=== PATIENT | female | born 1975 | race Asian ===

== ENCOUNTER 2021-04-05 16:55 | Emergency (ER) | payer OTHER ==
[~2021-04-05] VITALS: Ht 157.5 cm; Wt 54.4 kg
--- NOTE | 2021-04-05 17:07 | NUR ---
TO ER BED 4, C/O CHEST PAIN SINCE THIS AFTERNOON, ATTACHED TO MONITOR, AWAITING MD HAMM
--- NOTE | 2021-04-05 17:08 | NUR ---
SALINE LOCK ESTABLISHED AND BLOOD DRAWN
--- NOTE | 2021-04-05 17:42 | NUR ---
JANIE SO AT BEDSIDE
[2021-04-05 17:53] LABS: BASOPHILS # (AUTO) 0.1 K/uL (0.0-0.2); EOSINOPHILS % (AUTO) 2.8 % (0.0-6.0); HEMATOCRIT 40 % (33-45); LYMPHOCYTES # (AUTO) 2.1 K/uL (0.8-4.8); MEAN CORPUSCULAR HGB CONC 32 g/dl (31.0-36.0); MEAN CORPUSCULAR VOLUME 92 fL (82-100); MONOCYTES # (AUTO) 0.3 K/uL (0.1-1.30); MONOCYTES % (AUTO) 6.4 % (2.0-12.0); NEUTROPHILS # (AUTO) 2.4 K/uL (1.8-8.9); NEUTROPHILS % (AUTO) 47.8 % (43.0-81.0); PLATELET COUNT (AUTO) 340 K/uL (150-450); RED BLOOD CELL COUNT(AUTO) 4.35 MIL/uL (4.0-5.2); WHITE BLOOD COUNT (AUTO) 5.1 K/uL (4.3-11.0)
[2021-04-05 17:57] LABS: CARBON DIOXIDE 24 mmol/L (21-32); CHLORIDE 104 mmol/L (98-107); CREATININE 0.7 mg/dL (0.6-1.3); GLUCOSE 91 mg/dL (74-106); POTASSIUM 3.6 mmol/L (3.5-5.1); SODIUM SERUM 139 mmol/L (136-145); UREA NITROGEN, BLOOD 11 mg/dL (7-18)
[2021-04-05] MEDS ORDERED: PANTOPRAZOLE 40 MG VIAL IV ONE (18:00)
[2021-04-05] MEDS ORDERED: PANTOPRAZOLE 40 MG VIAL ONE (18:07)
[2021-04-05] MEDS ORDERED: KETOROLAC TROMETHAMINE 15 MG/ML VIAL ONE (18:58)
[2021-04-05] MEDS ORDERED: KETOROLAC TROMETHAMINE INJ 30 MG/ML VIAL IV ONE (19:00)
--- NOTE | 2021-04-05 19:04 | NUR ---
REPEAT TROPONIN AT [address] HIGUERA
--- NOTE | 2021-04-05 19:08 | NUR ---
REPORT GIVEN TO JOE RN FOR TRAVIS
--- NOTE | 2021-04-05 19:28 | NUR ---
RECIEVED REPORT FROM GRABIEL TERRELL.
--- NOTE | 2021-04-05 20:38 | NUR ---
[employer] AT BEDSIDE.
[2021-04-05 21:17] VITALS: BP 134/80
--- NOTE | 2021-04-05 21:17 | NUR ---
Patient discharged to home in stable condition. Written and verbal after care instructions given. Patient verbalizes understanding of instruction.
== END 2021-04-05 21:18 | disposition home or self-care (01) ==
LOC: ER 16:55
DX: R07.89 Other chest pain (principal); I10 Essential (primary) hypertension
CPT/HCPCS: 36415; 71045; 80048; 84484 ×2; 84702; 85025; 85378; 93005 ×4; 96374; 96375; 99285; C9113; J1885